=== PATIENT | male | born 1935 | race Caucasian/White ===

== ENCOUNTER 2018-03-17 10:22 | Emergency (ER) | payer MEDICARE, OTHER ==
[2018-03-17 10:31] VITALS: BP 133/75
--- NOTE | 2018-03-17 10:44 | EDM.PDOC ---
ED HPI GENERAL MEDICAL PROBLEM - General Chief Complaint: Cardiovascular Problem Stated Complaint: A-FIB Time Seen by Provider: 03/17/18 10:35 Source of Information: Reports: Patient History Limitations: Reports: No Limitations - History of Present Illness INITIAL COMMENTS - FREE TEXT/NARRATIVE: This 82 yo male patient reports to the ED due to a fast heartrate. The patient reports he noticed his elevated heartrate started last evening. The patient reports that he took an extra cardizem and an extra flecanide today with no change in his heartrate. The patient denies any shortness of breath or chest pain at this time. The patient reports he has had 10 previous similar episodes in the past. The patient reports that his factory representative had advised him to take up to 5 doses of flecanide, but the patient did not feel comfortable taking that many doses without being in a hospital. Onset Date: 03/16/18 Duration: Constant Location: Reports: Other Quality: Reports: Other Severity: Mild Improves with: Reports: None Worsens with: Reports: None Associated Symptoms: Reports: No Other Symptoms - Related Data Allergies Allergy/AdvReac Type Severity Reaction Status Date / Time No Known Allergies Allergy Verified 03/17/18 10:31 Home Meds: Home Meds Diltiazem HCl [Cardizem LA] 1 tab PO DAILY 03/17/18 [History] Docusate Sodium [Colace] 1 tab PO DAILY 03/17/18 [History] Flecainide Acetate 1 tab PO BID 03/17/18 [History] Melatonin 1 tab PO BEDTIME 03/17/18 [History] Omeprazole 1 tab PO DAILY 03/17/18 [History] Rosuvastatin Calcium 1 tab PO DAILY 03/17/18 [History] Warfarin Sodium [Coumadin] 1 tab PO DAILY 03/17/18 [History] Past Medical History Other HEENT History: has had previous bleeds into eye before - Past Surgical History Other Male Surgeries/Procedures: prostrate CA with removal ED ROS GENERAL - Review of Systems Review Of Systems: ROS reveals no pertinent complaints other than HPI. ED EXAM, GENERAL - Physical Exam Exam: See Below Exam Limited By: No Limitations General Appearance: Alert, WD/WN, No Apparent Distress Eye Exam: Bilateral Eye: EOMI, Normal Inspection, PERRL Ears: Normal External Exam, Normal Canal, Hearing Grossly Normal, Normal TMs Nose: Normal Inspection, Normal Mucosa, No Blood Throat/Mouth: Normal Inspection, Normal Lips, Normal Teeth, Normal Gums, Normal Oropharynx, Normal Voice, No Airway Compromise Head: Atraumatic, Normocephalic Neck: Normal Inspection, Supple, Non-Tender, Full Range of Motion Respiratory/Chest: No Respiratory Distress, Lungs Clear, Normal Breath Sounds, No Accessory Muscle Use, Chest Non-Tender Cardiovascular: Tachycardia, Other (mild edema left lower extremity) (Male) Exam: Deferred Rectal (Males) Exam: Deferred Extremities: Normal Range of Motion, Non-Tender, No Pedal Edema, Normal Capillary Refill, Pedal Edema (LLE) Neurological: Alert, Oriented, CN II-XII Intact, Normal Cognition, Normal Gait, Normal Reflexes, No Motor/Sensory Deficits Psychiatric: Normal Affect, Normal Mood Skin Exam: Warm, Dry, Intact, Normal Color, No Rash Lymphatic: No Adenopathy Course - Vital Signs Last Recorded V/S: Last Vital Signs Temp 36.8 C 03/17/18 10:22 Pulse 133 H 03/17/18 10:22 Resp 18 03/17/18 10:22 BP 133/75 03/17/18 10:22 Pulse Ox 96 03/17/18 10:22 - Orders/Labs/Meds Orders: Active Orders 24 hr Category Date Time Status EKG Documentation Completion [RC] URGENT Care 03/17/18 10:29 Active EKG Documentation Completion [RC] URGENT Care 03/17/18 10:49 Ordered Chest 1V Frontal [CR] Urgent Exams 03/17/18 10:29 Ordered Labs: Laboratory Tests 03/17/18 03/17/18 03/17/18 Range/Units 10:39 10:39 10:39 WBC 7.3 (5.0-10.0) 10^3/uL RBC 4.62 (4.6-6.2) 10^6/uL Hgb 14.9 (14.0-18.0) g/dL Hct 44.7 (40.0-54.0) % MCV 96.8 (80-100) fL MCH 32.3 (27.0-34.0) pg MCHC 33.3 (33.0-35.0) g/dL Plt Count 182 (150-450) 10^3/uL Neut % (Auto) 77.2 H (42.2-75.2) % Lymph % (Auto) 10.5 L (20.5-50.1) % [place] % (Auto) 10.8 H (2-8) % Eos % (Auto) 1.2 (1.0-3.0) % Baso % (Auto) 0.3 (0.0-1.0) % PT 30.7 H D (9.0-12.0) SEC INR 3.2 H (0.9-1.2) Sodium 137 (135-145) mmol/L Potassium 3.9 (3.6-5.0) mmol/L Chloride 104 (101-111) mmol/L Carbon Dioxide 24.0 (21.0-31.0) mmol/L Anion Gap 12.9 BUN 16 (7-18) mg/dL Creatinine 1.0 (0.6-1.3) mg/dL Est Cr Clr Drug Dosing 56.05 mL/min Estimated GFR (MDRD) > 60 BUN/Creatinine Ratio 16.00 Glucose 101 (74-105) mg/dL Calcium 8.5 (8.4-10.2) mg/dl Total Bilirubin 0.7 (0.2-1.0) mg/dL AST 24 (10-42) IU/L ALT 18 (10-60) IU/L Alkaline Phosphatase 103 (42-121) IU/L Troponin I < 0.02 (0.00-0.02) ng/ml Total Protein 6.9 (6.7-8.2) g/dl Albumin 3.9 (3.2-5.5) g/dl Globulin 3.0 Albumin/Globulin Ratio 1.30 Departure - Departure Time of Disposition: 11:16 Disposition: Home, Self-Care 01 Condition: Good Clinical Impression: Tachycardia Instructions: Sinus Tachycardia Forms: ED Department Discharge Care Plan Goals: The patient was advised of the examination, lab, x-ray and EKG results during the visit. The patient's tachycardia spontaneously converted without medication intervention. If the patient has any additional symptoms or concerns, the patient should follow-up with his primary care facility or return to the emergency department. - My Orders Last 24 Hours: My Active Orders 03/17/18 10:29 EKG Documentation Completion [RC] URGENT Chest 1V Frontal [CR] Urgent 03/17/18 10:49 EKG Documentation Completion [RC] URGENT - Assessment/Plan Last 24 Hours: My Active Orders 03/17/18 10:29 EKG Documentation Completion [RC] URGENT Chest 1V Frontal [CR] Urgent 03/17/18 10:49 EKG Documentation Completion [RC] URGENT
[2018-03-17 11:06] LABS: ANION GAP 12.9; CHLORIDE,CL 104 mmol/L (101-111); SODIUM,NA 137 mmol/L (135-145)
--- NOTE | 2018-03-21 11:41 | EKG ---
03/17/2018 - SAMUEL ROJAS - TIME: 10:53 a.m. FINDINGS: Sinus rhythm as per my readings. [facility] /[id number]
--- NOTE | 2018-03-21 11:41 | EKG ---
03/17/2018 - SAMUEL ROJAS - TIME: 10:28 a.m. FINDINGS: Sinus tachycardia at 129. [facility] /[id number]
== END 2018-03-17 12:10 | disposition home or self-care (01) ==
LOC: DL.ED 10:22
DX: R00.0 Tachycardia, unspecified (principal)
CPT/HCPCS: 36415; 71045; 80053; 84484; 85025; 85610; 93005; 93010; 99283; 99285

== ENCOUNTER 2018-05-21 23:59 | Emergency (ER) | payer MEDICARE, OTHER ==
--- NOTE | 2018-05-22 00:14 | EDM.PDOC ---
ED HPI GENERAL MEDICAL PROBLEM - General Chief Complaint: Chest Pain Stated Complaint: CHEST PAIN [id number] Time Seen by Provider: 05/22/18 00:11 Source of Information: Reports: Patient History Limitations: Reports: No Limitations - History of Present Illness INITIAL COMMENTS - FREE TEXT/NARRATIVE: sudden onset left chest pain sharp going down arm 10pm tonight. had similar before due to gas but was told at the time to have it check since both are very similar. right now seems to be slightly better. denies h/o [place], no stents no CABG Left Chest Pain Score (Numeric/FACES): 3 - Related Data Allergies Allergy/AdvReac Type Severity Reaction Status Date / Time No Known Allergies Allergy Verified 05/22/18 00:15 Home Meds: Home Meds Diltiazem HCl [Cardizem LA] 1 tab PO DAILY 03/17/18 [History] Docusate Sodium [Colace] 1 tab PO DAILY 03/17/18 [History] Flecainide Acetate 1 tab PO BID 03/17/18 [History] Melatonin 1 tab PO BEDTIME 03/17/18 [History] Omeprazole 1 tab PO DAILY 03/17/18 [History] Rosuvastatin Calcium 1 tab PO DAILY 03/17/18 [History] Warfarin Sodium [Coumadin] 1 tab PO DAILY 03/17/18 [History] Fluticasone Propionate [Flonase] 2 puff NASBOTH DAILY 05/22/18 [History] Past Medical History HEENT History: Reports: Other (See Below) Other HEENT History: has had previous bleeds into eye before Cardiovascular History: Reports: Afib, CAD Oncologic (Cancer) History: Reports: Prostate - Past Surgical History Other Male Surgeries/Procedures: prostrate CA with removal Social & Family History - Caffeine Use Caffeine Use: Reports: Coffee, Soda ED ROS GENERAL - Review of Systems Review Of Systems: ROS reveals no pertinent complaints other than HPI. ED EXAM, GENERAL - Physical Exam Exam: See Below Exam Limited By: No Limitations General Appearance: Alert, WD/WN, Mild Distress, Other (disocmfort) Ears: Hearing Grossly Normal Throat/Mouth: Normal Voice, No Airway Compromise Head: Atraumatic Neck: Non-Tender, Full Range of Motion Respiratory/Chest: No Respiratory Distress, Chest Non-Tender Cardiovascular: Regular Rate, Rhythm GI/Abdominal: Soft, Non-Tender Neurological: Alert, Oriented, Normal Cognition, Normal Gait, No Motor/Sensory Deficits Psychiatric: Normal Affect, Normal Mood Skin Exam: Warm, Dry, Normal Color Lymphatic: No Adenopathy Course - Vital Signs Last Recorded V/S: Last Vital Signs Temp 36.8 C 05/22/18 01:33 Pulse 55 L 05/22/18 04:07 Resp 16 05/22/18 04:07 BP 133/71 05/22/18 04:07 Pulse Ox 91 L 05/22/18 04:07 - Orders/Labs/Meds Orders: Active Orders 24 hr Category Date Time Status EKG 12 Lead [EKG Documentation Completion] [RC] STAT Care 05/22/18 00:05 Active EKG 12 Lead [EKG Documentation Completion] [RC] STAT Care 05/22/18 05:00 Active Chest 1V Frontal [CR] Urgent Exams 05/22/18 00:17 Taken Labs: Laboratory Tests 05/22/18 05/22/18 05/22/18 Range/Units 00:13 00:13 00:13 WBC 7.0 (5.0-10.0) 10^3/uL RBC 4.33 L (4.6-6.2) 10^6/uL Hgb 13.9 L (14.0-18.0) g/dL Hct 41.9 (40.0-54.0) % MCV 96.8 (80-100) fL MCH 32.1 (27.0-34.0) pg MCHC 33.2 (33.0-35.0) g/dL Plt Count 174 (150-450) 10^3/uL Neut % (Auto) 63.8 (42.2-75.2) % Lymph % (Auto) 20.0 L (20.5-50.1) % [place] % (Auto) 11.9 H (2-8) % Eos % (Auto) 4.0 H (1.0-3.0) % Baso % (Auto) 0.3 (0.0-1.0) % PT 18.8 H D (9.0-12.0) SEC INR 1.9 H (0.9-1.2) Sodium 138 (135-145) mmol/L Potassium 3.7 (3.6-5.0) mmol/L Chloride 103 (101-111) mmol/L Carbon Dioxide 28.0 (21.0-31.0) mmol/L Anion Gap 10.7 BUN 19 H (7-18) mg/dL Creatinine 1.0 (0.6-1.3) mg/dL Est Cr Clr Drug Dosing 56.05 mL/min Estimated GFR (MDRD) > 60 BUN/Creatinine Ratio 19.00 Glucose 101 (74-105) mg/dL Calcium 8.4 (8.4-10.2) mg/dl Total Bilirubin 0.5 (0.2-1.0) mg/dL AST 20 (10-42) IU/L ALT 19 (10-60) IU/L Alkaline Phosphatase 114 (42-121) IU/L Troponin I < 0.02 (0.00-0.02) ng/ml Total Protein 6.8 (6.7-8.2) g/dl Albumin 3.8 (3.2-5.5) g/dl Globulin 3.0 Albumin/Globulin Ratio 1.27 //18 Range/Units 05:00 WBC (5.0-10.0) 10^3/uL RBC (4.6-6.2) 10^6/uL Hgb (14.0-18.0) g/dL Hct (40.0-54.0) % MCV (80-100) fL MCH (27.0-34.0) pg MCHC (33.0-35.0) g/dL Plt Count (150-450) 10^3/uL Neut % (Auto) (42.2-75.2) % Lymph % (Auto) (20.5-50.1) % [place] % (Auto) (2-8) % Eos % (Auto) (1.0-3.0) % Baso % (Auto) (0.0-1.0) % PT (9.0-12.0) SEC INR (0.9-1.2) Sodium (135-145) mmol/L Potassium (3.6-5.0) mmol/L Chloride (101-111) mmol/L Carbon Dioxide (21.0-31.0) mmol/L Anion Gap BUN (7-18) mg/dL Creatinine (0.6-1.3) mg/dL Est Cr Clr Drug Dosing mL/min Estimated GFR (MDRD) BUN/Creatinine Ratio Glucose (74-105) mg/dL Calcium (8.4-10.2) mg/dl Total Bilirubin (0.2-1.0) mg/dL AST (10-42) IU/L ALT (10-60) IU/L Alkaline Phosphatase (42-121) IU/L Troponin I < 0.02 (0.00-0.02) ng/ml Total Protein (6.7-8.2) g/dl Albumin (3.2-5.5) g/dl Globulin Albumin/Globulin Ratio Meds: Medications Discontinued Medications Generic Name Dose Route Start Last Admin Trade Name Freq PRN Reason Stop Dose Admin Ketorolac Tromethamine 15 mg 05/22/18 01:03 05/22/18 01:17 Toradol IVPUSH 05/22/18 01:04 15 mg ONETIME ONE Administration Nitroglycerin 0.4 mg 05/22/18 00:48 05/22/18 01:14 Nitrostat SL 05/22/18 00:49 Not Given ONETIME ONE - Re-Assessments/Exams Free Text/Narrative Re-Assessment/Exam: 05/22/18 01:12 results discussed with pt who is actually feeling better but not 100%, thinks his shoulder arthritis is acting up, discussed about extended ER for repeat lab & ekg in am. 05/22/18 05:53 re-exam; no c/o feels much better presently. repeat ekg & trop = 'o' Departure - Departure Time of Disposition: 05:54 Disposition: Home, Self-Care 01 Condition: Good Clinical Impression: Atypical chest pain, Shoulder arthritis Forms: ED Department Discharge Additional Instructions: 1) rest and avoid strenuous activities 2) try heat pad to shoulder 3) recheck if there is any change or concern - My Orders Last 24 Hours: My Active Orders 05/22/18 00:05 EKG 12 Lead [EKG Documentation Completion] [RC] STAT 05/22/18 00:17 Chest 1V Frontal [CR] Urgent 05/22/18 05:00 EKG 12 Lead [EKG Documentation Completion] [RC] STAT - Assessment/Plan Last 24 Hours: My Active Orders 05/22/18 00:05 EKG 12 Lead [EKG Documentation Completion] [RC] STAT 05/22/18 00:17 Chest 1V Frontal [CR] Urgent 05/22/18 05:00 EKG 12 Lead [EKG Documentation Completion] [RC] STAT
[2018-05-22 00:40] LABS: ANION GAP 10.7; CHLORIDE,CL 103 mmol/L (101-111); SODIUM,NA 138 mmol/L (135-145)
[2018-05-22] MEDS ORDERED: Nitroglycerin 0.4 MG Tab.SL SL ONE (00:48)
[2018-05-22] MEDS ORDERED: Ketorolac 30 MG/ML SDV IVPUSH ONE (01:03)
[2018-05-22 04:08] VITALS: BP 133/71
== END 2018-05-22 06:14 | disposition home or self-care (01) ==
LOC: DL.ED 23:59
DX: R07.89 Other chest pain (principal); M19.019 Primary osteoarthritis, unspecified shoulder; Z79.899 Other long term (current) drug therapy
CPT/HCPCS: 36415; 71045; 80053; 84484; 85025; 85610; 93005; 93010; 96374; 99285; J1885; 99284

== ENCOUNTER 2019-01-07 19:08 | Emergency (ER) | payer MEDICARE, OTHER ==
[2019-01-07 19:54] VITALS: BP 148/64
[2019-01-07] MEDS ORDERED: Pantoprazole 80 MG in Sodium Chloride 0.9% 100 ML IV ONE (20:15)
[2019-01-07] MEDS ORDERED: Pantoprazole 40 MG Vial IVPUSH ONE (20:22)
--- NOTE | 2019-01-07 20:22 | EDM.PDOC ---
ED HPI GENERAL MEDICAL PROBLEM - General Chief Complaint: Gastrointestinal Problem Stated Complaint: BLOOD IN STOOL Time Seen by Provider: 01/07/19 19:55 Source of Information: Reports: Patient History Limitations: Reports: No Limitations - History of Present Illness INITIAL COMMENTS - FREE TEXT/NARRATIVE: ED with c/o one time bloody stool prior to arrival, No hx GI bleed, Remote diverticulitis. Has had no pain or nausea. No vomiting . On coumadin for A fib. Last INR one month ago. Levels usually stable when on branded coumadin. No bruising. No fever or chills. - Related Data Allergies Allergy/AdvReac Type Severity Reaction Status Date / Time No Known Allergies Allergy Verified 01/07/19 19:47 Home Meds: Home Meds Diltiazem HCl [Cardizem LA] 1 tab PO DAILY 03/17/18 [History] Docusate Sodium [Colace] 1 tab PO DAILY 03/17/18 [History] Flecainide Acetate 1 tab PO BID 03/17/18 [History] Omeprazole 1 tab PO DAILY PRN 03/17/18 [History] Rosuvastatin Calcium 1 tab PO DAILY 03/17/18 [History] Warfarin Sodium [Coumadin] 1 tab PO DAILY 03/17/18 [History] Past Medical History HEENT History: Reports: Other (See Below) Other HEENT History: has had previous bleeds into eye before Cardiovascular History: Reports: Afib, CAD Musculoskeletal History: Reports: Arthritis Oncologic (Cancer) History: Reports: Prostate - Past Surgical History GI Surgical History: Reports: Cholecystectomy Other Male Surgeries/Procedures: prostate CA with removal Social & Family History - Family History Family Medical History: Noncontributory - Tobacco Use Smoking Status *Q: Unknown Ever Smoked - Caffeine Use Caffeine Use: Reports: Coffee - Alcohol Use Days Per Week of Alcohol Use: 3 Number of Drinks Per Day: 2 Total Drinks Per Week: 6 - Recreational Drug Use Recreational Drug Use: No ED ROS GENERAL - Review of Systems Review Of Systems: ROS reveals no pertinent complaints other than HPI. ED EXAM, GI/ABD - Physical Exam Exam: See Below Exam Limited By: No Limitations General Appearance: Alert, No Apparent Distress Eyes: Bilateral: EOMI Ears: Normal External Exam, Hearing Loss (mild) Nose: Normal Inspection Throat/Mouth: Normal Inspection Head: Atraumatic, Normocephalic Neck: Normal Inspection Respiratory/Chest: No Respiratory Distress, Lungs Clear, Normal Breath Sounds Cardiovascular: Normal Peripheral Pulses, Regular Rate, Rhythm GI/Abdominal Exam: Normal Bowel Sounds, Soft, Non-Tender. No: Distended, Guarding, Rigid Rectal (Males) Exam: Heme + Stool Back Exam: Full Range of Motion Extremities: Normal Inspection, Pedal Edema (trace) Neurological: Alert Psychiatric: Normal Affect, Normal Mood Skin Exam: Warm, Dry, Intact, Normal Color Course - Vital Signs Last Recorded V/S: Last Vital Signs Temp 98.9 F 01/07/19 19:53 Pulse 64 01/07/19 19:53 Resp 18 01/07/19 19:53 BP 148/64 H 01/07/19 19:53 Pulse Ox 96 01/07/19 19:53 - Orders/Labs/Meds Labs: Laboratory Tests 01/07/19 01/07/19 01/07/19 Range/Units 20:00 20:00 20:00 WBC 6.0 (5.0-10.0) 10^3/uL RBC 4.51 L (4.6-6.2) 10^6/uL Hgb 14.6 (14.0-18.0) g/dL Hct 43.7 (40.0-54.0) % MCV 96.9 (80-100) fL MCH 32.4 (27.0-34.0) pg MCHC 33.4 (33.0-35.0) g/dL Plt Count 197 (150-450) 10^3/uL Neut % (Auto) 65.4 (42.2-75.2) % Lymph % (Auto) 19.4 L (20.5-50.1) % [place] % (Auto) 10.8 H (2-8) % Eos % (Auto) 4.2 H (1.0-3.0) % Baso % (Auto) 0.2 (0.0-1.0) % PT 20.8 H (9.0-12.0) SEC INR 2.1 H (0.9-1.2) Sodium 138 (135-145) mmol/L Potassium 3.5 L (3.6-5.0) mmol/L Chloride 104 (101-111) mmol/L Carbon Dioxide 21.0 (21.0-31.0) mmol/L Anion Gap 16.5 BUN 20 H (7-18) mg/dL Creatinine 0.9 (0.6-1.3) mg/dL Est Cr Clr Drug Dosing 61.22 mL/min Estimated GFR (MDRD) > 60 BUN/Creatinine Ratio 22.22 Glucose 112 H (74-105) mg/dL Calcium 8.6 (8.4-10.2) mg/dl Total Bilirubin 0.5 (0.2-1.0) mg/dL AST 23 (10-42) IU/L ALT 19 (10-60) IU/L Alkaline Phosphatase 96 (42-121) IU/L Total Protein 6.9 (6.7-8.2) g/dl Albumin 3.8 (3.2-5.5) g/dl Globulin 3.1 Albumin/Globulin Ratio 1.23 Urine Color (YELLOW) Urine Appearance (CLEAR) Urine pH (5.0-9.0) Ur Specific [place] (1.005-1.030) Urine Protein (NEGATIVE) Urine Glucose (UA) (NEGATIVE) Urine Ketones (NEGATIVE) Urine Occult Blood (NEGATIVE) Urine Nitrite (NEGATIVE) Urine Bilirubin (NEGATIVE) Urine Urobilinogen (0.2-1.0) mg/dL Ur Leukocyte Esterase (NEGATIVE) Blood Type Gel Antibody Screen 01/07/19 01/07/19 01/07/19 Range/Units 20:00 20:10 21:35 WBC (5.0-10.0) 10^3/uL RBC (4.6-6.2) 10^6/uL Hgb 14.0 (14.0-18.0) g/dL Hct (40.0-54.0) % MCV (80-100) fL MCH (27.0-34.0) pg MCHC (33.0-35.0) g/dL Plt Count (150-450) 10^3/uL Neut % (Auto) (42.2-75.2) % Lymph % (Auto) (20.5-50.1) % [place] % (Auto) (2-8) % Eos % (Auto) (1.0-3.0) % Baso % (Auto) (0.0-1.0) % PT (9.0-12.0) SEC INR (0.9-1.2) Sodium (135-145) mmol/L Potassium (3.6-5.0) mmol/L Chloride (101-111) mmol/L Carbon Dioxide (21.0-31.0) mmol/L Anion Gap BUN (7-18) mg/dL Creatinine (0.6-1.3) mg/dL Est Cr Clr Drug Dosing mL/min Estimated GFR (MDRD) BUN/Creatinine Ratio Glucose (74-105) mg/dL Calcium (8.4-10.2) mg/dl Total Bilirubin (0.2-1.0) mg/dL AST (10-42) IU/L ALT (10-60) IU/L Alkaline Phosphatase (42-121) IU/L Total Protein (6.7-8.2) g/dl Albumin (3.2-5.5) g/dl Globulin Albumin/Globulin Ratio Urine Color Yellow (YELLOW) Urine Appearance Clear (CLEAR) Urine pH 5.0 (5.0-9.0) Ur Specific [place] 1.020 (1.005-1.030) Urine Protein Negative (NEGATIVE) Urine Glucose (UA) Negative (NEGATIVE) Urine Ketones Negative (NEGATIVE) Urine Occult Blood Negative (NEGATIVE) Urine Nitrite Negative (NEGATIVE) Urine Bilirubin Negative (NEGATIVE) Urine Urobilinogen 0.2 (0.2-1.0) mg/dL Ur Leukocyte Esterase Negative (NEGATIVE) Blood Type O POSITIVE Gel Antibody Screen Negative Meds: Medications Discontinued Medications Generic Name Dose Route Start Last Admin Trade Name Freq PRN Reason Stop Dose Admin Pantoprazole Sodium 80 mg/ 100 mls @ 200 mls/hr 01/07/19 20:15 01/07/19 20:25 Sodium Chloride IV 01/07/19 20:44 Not Given .BOLUS ONE Pantoprazole Sodium 40 mg/ 100 mls @ 20 mls/hr 01/07/19 20:30 01/07/19 20:26 Sodium Chloride IV 20 mls/hr .CONTINUOS FELISA Administration Sodium Chloride 1,000 mls @ 150 mls/min 01/07/19 20:40 01/07/19 20:54 Normal Saline IV 01/07/19 20:46 150 mls/min .BOLUS ONE Administration Pantoprazole Sodium 80 mg 01/07/19 20:22 01/07/19 20:24 Protonix Iv IVPUSH 01/07/19 20:23 80 mg .BOLUS ONE Administration Pantoprazole Sodium Confirm 01/07/19 20:24 01/07/19 20:29 Protonix Iv Administered 01/07/19 20:25 Not Given Dose 40 mg .ROUTE .STK-MED ONE Phytonadione 5 mg 01/07/19 21:02 01/07/19 21:20 Aquamephyton PO 01/07/19 21:03 5 mg ONETIME ONE Administration - Re-Assessments/Exams Free Text/Narrative Re-Assessment/Exam: 2 large loose currant jelly stools in ED. Tx [place] via [facility]. No GI specialty at [facility]. VSS. Continues without pain. Departure - Departure Time of Disposition: 21:55 Disposition: DC/Tfer to Acute Hospital 02 Condition: Good Clinical Impression: Chronic anticoagulation GI bleed Qualifiers: GI bleed type/associated pathology: unspecified gastrointestinal hemorrhage type Qualified Code(s): K92.2 - Gastrointestinal hemorrhage, unspecified A-fib Qualifiers: Atrial fibrillation type: paroxysmal Qualified Code(s): I48.0 - Paroxysmal atrial fibrillation - Discharge Information *PRESCRIPTION DRUG MONITORING PROGRAM REVIEWED*: No *COPY OF PRESCRIPTION DRUG MONITORING REPORT IN PATIENT MELODY: No Referrals: PCP,Unobtain [Primary Care Provider] - Forms: ED Department Discharge
[2019-01-07] MEDS ORDERED: Pantoprazole 40 MG Vial ONE (20:24)
[2019-01-07 20:28] LABS: ANION GAP 16.5; CHLORIDE,CL 104 mmol/L (101-111); SODIUM,NA 138 mmol/L (135-145)
[2019-01-07] MEDS ORDERED: Pantoprazole 40 MG in Sodium Chloride 0.9% 100 ML IV SCH (20:30)
[2019-01-07] MEDS ORDERED: Sodium Chloride 0.9% 1,000 ML IV ONE (20:40)
[2019-01-07] MEDS ORDERED: Phytonadione ORAL 2.5mg/2.5ml Soln Simple Syrup U/D PO ONE (21:02)
== END 2019-01-07 21:53 ==
LOC: DL.ED 19:08
DX: K92.2 Gastrointestinal hemorrhage, unspecified (principal); I48.0 Paroxysmal atrial fibrillation; I25.10 Atherosclerotic heart disease of native coronary artery without angina pectoris; Z79.899 Other long term (current) drug therapy; Z79.01 Long term (current) use of anticoagulants
CPT/HCPCS: 36415; 80053; 81003; 82272; 85018; 85025; 85610; 86850; 86900; 86901; 93005; 96365; 96376; 99284; A9270; C9113; J7030; J7050

== ENCOUNTER 2021-12-30 15:25 | Emergency (ER) | payer MEDICARE, OTHER ==
[2021-12-30] MEDS ORDERED: Acetaminophen/HYDROcodone 325-5 MG Tab PO ONE (15:26)
[2021-12-30] MEDS ORDERED: Ondansetron 4 MG Tab.DIS PO ONE (15:26)
[2021-12-30] MEDS ORDERED: Ondansetron 4 MG/2 ML SDV IVPUSH ONE (15:44)
[2021-12-30 16:16] VITALS: BP 170/65; PULSE 83
[2021-12-30 16:40] LABS: ANION GAP 15.1 mEq/L (7-13); CHLORIDE,CL 100 mmol/L (98-107); SODIUM,NA 135 mmol/L (136-145)
[2021-12-30] MEDS ORDERED: Sodium Chloride 0.9% 1,000 ML IV ONE (16:52)
[2021-12-30] MEDS ORDERED: HYDROmorphone 1 MG/ML Syringe IVPUSH ONE ×2 (16:52→17:54)
[2021-12-30] MEDS ORDERED: Iopamidol 612 MG/ML 100 ML Bottle IVPUSH ONE (16:53)
[2021-12-30 17:25] LABS: PTT,PARTIAL THROMBOPLSTIN TIME 55.5 SEC (22.0-34.0)
[2021-12-30 18:17] LABS: AMPHETAMINES,URINE NEGATIVE (NEGATIVE); BARBITURATES,URINE NEGATIVE (NEGATIVE); BENZODIAZEPINE,URINE NEGATIVE (NEGATIVE); MDMA (ECSTASY), URINE NEGATIVE (NEGATIVE); METHADONE,URINE POSITIVE (NEGATIVE); METHAMPHETAMINES,URINE NEGATIVE (NEGATIVE); OPIATES,URINE NEGATIVE (NEGATIVE); OXYCODONE,URINE NEGATIVE (NEGATIVE); PHENCYCLIDINE,URINE NEGATIVE (NEGATIVE); TCA,URINE NEGATIVE (NEGATIVE)
[2021-12-30] MEDS ORDERED: Acetaminophen/HYDROcodone 325-5 MG Tab ONE (19:46)
[2021-12-30] MEDS ORDERED: Ondansetron 4 MG Tab.DIS ONE (19:46)
== END 2021-12-30 20:01 | disposition home or self-care (01) ==
LOC: DL.ED 15:25
DX: N13.2 Hydronephrosis with renal and ureteral calculous obstruction (principal); I48.91 Unspecified atrial fibrillation; I25.10 Atherosclerotic heart disease of native coronary artery without angina pectoris; N04.9 Nephrotic syndrome with unspecified morphologic changes; R79.1 Abnormal coagulation profile; Z79.01 Long term (current) use of anticoagulants; Z79.899 Other long term (current) drug therapy; Z88.1 Allergy status to other antibiotic agents; Z88.0 Allergy status to penicillin; Z88.8 Allergy status to other drugs, medicaments and biological substances
CPT/HCPCS: 36415; 74177; 80053; 80305-QW; 80307; 81001; 82150; 83605; 83690; 83735; 85025; 85610; 85730; 86140; 96374; 96375; 96376; 99284; 99284-25; A9270-GY; J1170; J2405; J7030

== ENCOUNTER 2024-08-22 12:07 | Inpatient (IN) | payer MEDICARE, OTHER ==
[2024-08-22] MEDS ORDERED: Ondansetron 4 MG Tab.DIS PO PRN ×2 (16:35→17:54)
[2024-08-22] MEDS ORDERED: oxyCODONE 5 MG Tab PO PRN (17:54)
[2024-08-22] MEDS ORDERED: traMADol 50 MG Tab PO PRN (17:54)
[2024-08-22] MEDS: Diltiazem 120 MG Cap.CD PO SCH (20:52)
[2024-08-22] MEDS: Diltiazem 180 MG Cap.CD PO SCH (20:52)
[2024-08-22] MEDS: Sennosides/Docusate Sodium 50-8.6 MG Tab PO SCH (20:52)
[2024-08-22] MEDS: Docusate Sodium 100 MG Cap PO SCH (20:52)
[2024-08-22] MEDS: Apixaban 5 MG Tab PO SCH (20:52)
[2024-08-22] MEDS: Rosuvastatin 10 MG Tab PO SCH (20:53)
[2024-08-22] MEDS: Acetaminophen 325 MG Tab PO PRN (20:58)
[2024-08-23] MEDS: Acetaminophen 325 MG Tab PO SCH (01:50)
[2024-08-23] MEDS: Pantoprazole 40 MG Tab.CR PO SCH (05:56)
[2024-08-23] MEDS: Celecoxib 100 MG Cap PO SCH (08:34)
[2024-08-23] MEDS: Gabapentin 100 MG Cap PO SCH (08:34)
[2024-08-23] MEDS: Multivitamin Tab PO SCH (08:34)
[2024-08-23] MEDS: Saccharomyces Boulardii (Probiotic) 250 MG Cap PO SCH (10:59)
[2024-08-23] MEDS: [UNRECOGNIZED DRUG - OTHER] PO SCH (11:03)
[2024-08-23] MEDS: Lidocaine 5% 700 MG Patch TOP SCH (16:28)
[2024-08-23] MEDS: FLECAINIDE ACETATE 50 MG PO SCH (17:30)
[2024-08-23] MEDS: OMEGA PO SCH (17:31)
[2024-08-23] MEDS: EPA PO SCH (17:31)
[2024-08-23] MEDS: FISH OIL PO SCH (17:31)
[2024-08-23] MEDS: DHA PO SCH (17:31)
[2024-08-23] MEDS: [UNRECOGNIZED DRUG - OTHER] PO SCH (17:31)
[2024-08-23] MEDS: FLECAINIDE 50 MG PO SCH (21:49)
[2024-08-23] MEDS: Non-Formulary Medication 1 Each (Rosuvastatin [Crestor] 20 MG Tablet) PO SCH (22:38)
[2024-08-24] MEDS: Sennosides/Docusate Sodium 50-8.6 MG Tab PO PRN (09:49)
[2024-08-24 10:13] LABS: HEMATOCRIT 29.9 % (40.0-54.0); HEMOGLOBIN 8.9 g/dL (14.0-18.0); MEAN CORPUSCULAR HEMOGLOBIN 28.4 pg (27.0-34.0); MEAN CORPUSCULAR HGB CONC 29.8 g/dL (33.0-35.0); MEAN CORPUSCULAR VOLUME 95.5 fL (80-100); RED BLOOD CELL COUNT 3.13 10^6/uL (4.6-6.2); WHITE BLOOD CELL COUNT,WBC 6.3 10^3/uL (5.0-10.0)
[2024-08-24 10:33] LABS: ANION GAP 10.8 mEq/L (7-13); CALCIUM 8.3 mg/dL (8.5-10.1); CREATININE 0.79 mg/dL (0.70-1.30); EST CRCL DRUG DOSING (CG) 63.73 mL/min; POTASSIUM,K 3.8 mmol/L (3.5-5.1)
[2024-08-25] MEDS: Furosemide 20 MG Tab PO ONE (11:35)
[2024-08-25] MEDS ORDERED: Erythromycin Base 0.5% Ophth Oint 1 GM Tube EYEBOTH PRN (20:24)
[2024-08-25] MEDS ORDERED: ERYTHROMYCIN BASE 0.5% EYEBOTH PRN (21:12)
[2024-08-25] MEDS: ERYTHROMYCIN BASE 0.5% EYEBOTH PRN (21:42)
[2024-08-26 08:26] LABS: CALCIUM 8.5 mg/dL (8.5-10.1); CREATININE 0.77 mg/dL (0.70-1.30); EST CRCL DRUG DOSING (CG) 65.39 mL/min
[2024-08-27] MEDS: Diclofenac Sodium 1% Gel 100 GM Tube TOP PRN (01:47)
[2024-08-27 11:13] LABS: HEMATOCRIT 28.7 % (40.0-54.0); HEMOGLOBIN 8.7 g/dL (14.0-18.0); MEAN CORPUSCULAR HEMOGLOBIN 28.8 pg (27.0-34.0); MEAN CORPUSCULAR HGB CONC 30.3 g/dL (33.0-35.0); RED BLOOD CELL COUNT 3.02 10^6/uL (4.6-6.2); WHITE BLOOD CELL COUNT,WBC 5.6 10^3/uL (5.0-10.0)
[2024-08-27 11:26] LABS: ANION GAP 12.1 mEq/L (7-13); CALCIUM 8.2 mg/dL (8.5-10.1); CREATININE 0.85 mg/dL (0.70-1.30); EST CRCL DRUG DOSING (CG) 59.24 mL/min; POTASSIUM,K 4.1 mmol/L (3.5-5.1)
[2024-08-30 14:12] LABS: HEMATOCRIT 27.6 % (40.0-54.0); HEMOGLOBIN 8.3 g/dL (14.0-18.0); MEAN CORPUSCULAR HEMOGLOBIN 28.6 pg (27.0-34.0); MEAN CORPUSCULAR HGB CONC 30.1 g/dL (33.0-35.0); MEAN CORPUSCULAR VOLUME 95.2 fL (80-100); RED BLOOD CELL COUNT 2.9 10^6/uL (4.6-6.2)
[2024-08-30 14:23] LABS: ANION GAP 13.9 mEq/L (7-13); CALCIUM 8.2 mg/dL (8.5-10.1); CREATININE 0.81 mg/dL (0.70-1.30); EST CRCL DRUG DOSING (CG) 62.16 mL/min; POTASSIUM,K 3.9 mmol/L (3.5-5.1)
[2024-08-31 07:24] VITALS: BP 119/96; PULSE 63
== END 2024-08-31 10:55 | disposition home or self-care (01) | DRG 556 ==
LOC: DL.MS 15:54
PROVIDERS: ADMIT Internal Medicine; ATTEND Internal Medicine
DX: M25.562 Pain in left knee (principal); Z66 Do not resuscitate; Z96.651 Presence of right artificial knee joint; I48.0 Paroxysmal atrial fibrillation; I10 Essential (primary) hypertension; I25.10 Atherosclerotic heart disease of native coronary artery without angina pectoris; M06.9 Rheumatoid arthritis, unspecified; K21.9 Gastro-esophageal reflux disease without esophagitis; R73.03 Prediabetes; Z79.01 Long term (current) use of anticoagulants; Z88.0 Allergy status to penicillin; Z88.2 Allergy status to sulfonamides; Z88.8 Allergy status to other drugs, medicaments and biological substances; Z88.1 Allergy status to other antibiotic agents; Z79.899 Other long term (current) drug therapy; Z79.52 Long term (current) use of systemic steroids; Z85.46 Personal history of malignant neoplasm of prostate; Z90.49 Acquired absence of other specified parts of digestive tract
CPT/HCPCS: 36415; 80048; 85027; 94010; 97110-GO; 97110-GP; 97116-GP; 97161-GP; 97165-GO; 97530-GO; 99305; 99308; 99316; A9270-GY

== ENCOUNTER 2025-01-18 08:24 | Inpatient (IN) | payer MEDICARE, OTHER ==
[2025-01-18] MEDS ORDERED: Sennosides/Docusate Sodium 50-8.6 MG Tab PO PRN (19:03)
[2025-01-18] MEDS ORDERED: Sodium Chloride 0.9% 10 ML Syringe FLUSH PRN (19:09)
[2025-01-18] MEDS ORDERED: Erythromycin Base 0.5% Ophth Oint 3.5 GM Tube EYEBOTH PRN (19:11)
[2025-01-18] MEDS: Ibuprofen 400 MG Tab PO SCH (20:53)
[2025-01-18] MEDS: Acetaminophen 325 MG Tab PO SCH ×2 (20:54→23:09)
[2025-01-18] MEDS: Apixaban 5 MG Tab PO ONE (20:55)
[2025-01-18] MEDS: Docusate Sodium 100 MG Cap PO SCH (20:55)
[2025-01-18] MEDS ORDERED: Non-Formulary Medication 1 Each (Rosuvastatin [Crestor] 20 MG Tablet) PO SCH (21:00)
[2025-01-18] MEDS: Sodium Chloride 0.9% 10 ML Syringe FLUSH SCH (21:00)
[2025-01-18] MEDS: Polyethylene Glycol 3350 Powder 17 GM Packet PO SCH (21:00)
[2025-01-18] MEDS: FLECAINIDE 50 MG PO SCH (21:56)
[2025-01-18] MEDS: DILTIAZEM 300 MG PO SCH (21:57)
[2025-01-19] MEDS ORDERED: Ondansetron 4 MG/2 ML SDV IVPUSH PRN (01:56)
[2025-01-19] MEDS: oxyCODONE 5 MG Tab PO PRN (01:57)
[2025-01-19] MEDS: Ondansetron 4 MG Tab.DIS PO PRN (02:12)
[2025-01-19] MEDS: Pantoprazole 40 MG Tab.CR PO SCH (05:47)
[2025-01-19 06:17] LABS: BASOPHILS PERCENT AUTO 0.2 % (0.0-1.0); EOSINOPHILS PERCENT AUTO 3.2 % (1.0-3.0); HEMATOCRIT 23.7 % (40.0-54.0); HEMOGLOBIN 7.5 g/dL (14.0-18.0); MEAN CORPUSCULAR HGB CONC 31.6 g/dL (33.0-35.0); MEAN CORPUSCULAR VOLUME 94.8 fL (80-100); MONOCYTES PERCENT AUTO 10.9 % (2-8); NEUTROPHILS PERCENT AUTO 76.7 % (42.2-75.2); PLATELET COUNT,PLT 254 10^3/uL (150-450); WHITE BLOOD CELL COUNT,WBC 8.3 10^3/uL (5.0-10.0)
[2025-01-19 06:37] LABS: ALBUMIN 1.9 g/dL (3.4-5.0); ANION GAP 9.4 mEq/L (7-13); BILIRUBIN TOTAL 0.5 mg/dL (0.2-1.0); BUN/CREATININE RATIO 20.3 (No establ ref range); CREATININE 0.79 mg/dL (0.70-1.30); EST CRCL DRUG DOSING (CG) 56.22 mL/min; POTASSIUM,K 4.4 mmol/L (3.5-5.1); PROTEIN TOTAL,TP 5.8 g/dL (6.4-8.2)
[2025-01-19 06:40] LABS: A/G RATIO 0.49
[2025-01-19] MEDS: Bisacodyl 5 MG Tab PO SCH (08:14)
[2025-01-19] MEDS ORDERED: APIXABAN 5 MG PO SCH (09:00)
[2025-01-19] MEDS: APIXABAN 5 MG PO SCH (10:58)
[2025-01-19] MEDS: Polyethylene Glycol 3350 Powder 17 GM Packet PO SCH (21:13)
[2025-01-19] MEDS: Sennosides/Docusate Sodium 50-8.6 MG Tab PO SCH (21:14)
[2025-01-20 06:28] LABS: BASOPHILS PERCENT AUTO 0.4 % (0.0-1.0); EOSINOPHILS PERCENT AUTO 2.3 % (1.0-3.0); HEMATOCRIT 25.5 % (40.0-54.0); HEMOGLOBIN 7.9 g/dL (14.0-18.0); LYMPHOCYTES PERCENT AUTO 8.8 % (20.5-50.1); MEAN CORPUSCULAR HEMOGLOBIN 29.3 pg (27.0-34.0); MEAN CORPUSCULAR VOLUME 94.4 fL (80-100); NEUTROPHILS PERCENT AUTO 74.5 % (42.2-75.2); PLATELET COUNT,PLT 280 10^3/uL (150-450); WHITE BLOOD CELL COUNT,WBC 7.8 10^3/uL (5.0-10.0)
[2025-01-20 06:59] LABS: ANION GAP 9.3 mEq/L (7-13); BILIRUBIN TOTAL 0.5 mg/dL (0.2-1.0); BUN/CREATININE RATIO 16.5 (No establ ref range); CALCIUM 8.1 mg/dL (8.5-10.1); CREATININE 0.79 mg/dL (0.70-1.30); EST CRCL DRUG DOSING (CG) 56.22 mL/min; MAGNESIUM 1.9 mg/dL (1.8-2.4); POTASSIUM,K 4.3 mmol/L (3.5-5.1); PROTEIN TOTAL,TP 5.9 g/dL (6.4-8.2)
[2025-01-20 07:03] LABS: A/G RATIO 0.51
[2025-01-20] MEDS: Celecoxib 100 MG Cap PO SCH (10:29)
[2025-01-21] MEDS: Metoclopramide 10 MG Tab PO ONE (03:25)
[2025-01-21] MEDS ORDERED: Polyethylene Glycol 3350 Powder 17 GM Packet PO PRN (06:16)
[2025-01-21] MEDS ORDERED: Sennosides/Docusate Sodium 50-8.6 MG Tab PO PRN (06:16)
[2025-01-21] MEDS ORDERED: Docusate Sodium 100 MG Cap PO PRN (06:16)
[2025-01-21] MEDS ORDERED: Bisacodyl 5 MG Tab PO PRN (06:16)
[2025-01-21 06:27] LABS: BASOPHILS PERCENT AUTO 0.3 % (0.0-1.0); EOSINOPHILS PERCENT AUTO 1.4 % (1.0-3.0); HEMATOCRIT 30.9 % (40.0-54.0); HEMOGLOBIN 10.3 g/dL (14.0-18.0); LYMPHOCYTES PERCENT AUTO 6.8 % (20.5-50.1); MEAN CORPUSCULAR HEMOGLOBIN 31.1 pg (27.0-34.0); MEAN CORPUSCULAR HGB CONC 33.3 g/dL (33.0-35.0); MEAN CORPUSCULAR VOLUME 93.4 fL (80-100); MONOCYTES PERCENT AUTO 13.3 % (2-8); NEUTROPHILS PERCENT AUTO 78.2 % (42.2-75.2); PLATELET COUNT,PLT 356 10^3/uL (150-450); RED BLOOD CELL COUNT 3.31 10^6/uL (4.6-6.2); WHITE BLOOD CELL COUNT,WBC 9.3 10^3/uL (5.0-10.0)
[2025-01-21 07:10] LABS: ALBUMIN 2.2 g/dL (3.4-5.0); ANION GAP 13.2 mEq/L (7-13); BILIRUBIN TOTAL 0.8 mg/dL (0.2-1.0); BUN/CREATININE RATIO 14.5 (No establ ref range); CALCIUM 8.9 mg/dL (8.5-10.1); CREATININE 0.76 mg/dL (0.70-1.30); EST CRCL DRUG DOSING (CG) 58.44 mL/min; MAGNESIUM 1.9 mg/dL (1.8-2.4); POTASSIUM,K 4.2 mmol/L (3.5-5.1); PROTEIN TOTAL,TP 6.7 g/dL (6.4-8.2)
[2025-01-21 07:12] LABS: A/G RATIO 0.49
[2025-01-21] MEDS ORDERED: Sodium Chloride 0.9% 10 ML Syringe FLUSH PRN (14:59)
[2025-01-21] MEDS: Ondansetron 4 MG/2 ML SDV IVPUSH PRN (15:31)
[2025-01-21] MEDS: Metoclopramide 10 MG/2 ML SDV IVPUSH PRN (18:48)
[2025-01-21] MEDS: Sodium Chloride 0.9% 1,000 ML IV SCH (18:48)
[2025-01-21] MEDS: Sodium Chloride 0.9% 10 ML Syringe FLUSH SCH (20:45)
[2025-01-21] MEDS ORDERED: Non-Formulary Medication 1 Each (Methocarbamol [Methocarbamol] 500 MG Tablet) PO PRN (21:00)
[2025-01-22 06:16] LABS: BASOPHILS PERCENT AUTO 0.2 % (0.0-1.0); EOSINOPHILS PERCENT AUTO 2.2 % (1.0-3.0); HEMOGLOBIN 10.5 g/dL (14.0-18.0); LYMPHOCYTES PERCENT AUTO 8.2 % (20.5-50.1); MEAN CORPUSCULAR HGB CONC 36.2 g/dL (33.0-35.0); MEAN CORPUSCULAR VOLUME 93.9 fL (80-100); MONOCYTES PERCENT AUTO 15.7 % (2-8); NEUTROPHILS PERCENT AUTO 73.7 % (42.2-75.2); PLATELET COUNT,PLT 306 10^3/uL (150-450); RED BLOOD CELL COUNT 3.09 10^6/uL (4.6-6.2); WHITE BLOOD CELL COUNT,WBC 8.3 10^3/uL (5.0-10.0)
[2025-01-22 06:35] LABS: ALBUMIN 2.1 g/dL (3.4-5.0); ANION GAP 12.9 mEq/L (7-13); BILIRUBIN TOTAL 0.7 mg/dL (0.2-1.0); BUN/CREATININE RATIO 15.7 (No establ ref range); CALCIUM 8.2 mg/dL (8.5-10.1); CREATININE 0.83 mg/dL (0.70-1.30); EST CRCL DRUG DOSING (CG) 53.51 mL/min; POTASSIUM,K 3.9 mmol/L (3.5-5.1); PROTEIN TOTAL,TP 6.2 g/dL (6.4-8.2)
[2025-01-22 06:42] LABS: A/G RATIO 0.51
[2025-01-22] MEDS: Simethicone 80 MG Tab.Chew PO SCH (09:31)
[2025-01-22] MEDS: Iopamidol 612 MG/ML 100 ML Bottle IVPUSH ONE (20:13)
[2025-01-23] MEDS: Cyclobenzaprine 10 MG Tab PO PRN (01:23)
[2025-01-23] MEDS: Lidocaine 2% Jelly 10 ML Urojet ONE (02:06)
[2025-01-23 06:22] LABS: BASOPHILS PERCENT AUTO 0.4 % (0.0-1.0); EOSINOPHILS PERCENT AUTO 1.9 % (1.0-3.0); HEMATOCRIT 28.9 % (40.0-54.0); HEMOGLOBIN 9.7 g/dL (14.0-18.0); LYMPHOCYTES PERCENT AUTO 6.6 % (20.5-50.1); MEAN CORPUSCULAR HEMOGLOBIN 31.7 pg (27.0-34.0); MEAN CORPUSCULAR HGB CONC 33.6 g/dL (33.0-35.0); MEAN CORPUSCULAR VOLUME 94.4 fL (80-100); MONOCYTES PERCENT AUTO 12.5 % (2-8); NEUTROPHILS PERCENT AUTO 78.6 % (42.2-75.2); PLATELET COUNT,PLT 306 10^3/uL (150-450); RED BLOOD CELL COUNT 3.06 10^6/uL (4.6-6.2); WHITE BLOOD CELL COUNT,WBC 8.3 10^3/uL (5.0-10.0)
[2025-01-23 06:42] LABS: ANION GAP 13.5 mEq/L (7-13); CALCIUM 8.3 mg/dL (8.5-10.1); CREATININE 0.79 mg/dL (0.70-1.30); EST CRCL DRUG DOSING (CG) 56.22 mL/min; MAGNESIUM 1.9 mg/dL (1.8-2.4); POTASSIUM,K 3.5 mmol/L (3.5-5.1)
[2025-01-23 07:55] VITALS: BP 134/99; PULSE 76
== END 2025-01-23 07:20 | DRG 948 ==
LOC: DL.MS 16:46
PROVIDERS: ADMIT Internal Medicine; ATTEND Student in an Organized Health Care Education/Training Program
DX: R53.81 Other malaise (principal); Z66 Do not resuscitate; M19.90 Unspecified osteoarthritis, unspecified site; I48.91 Unspecified atrial fibrillation; D63.8 Anemia in other chronic diseases classified elsewhere; E61.1 Iron deficiency; H91.90 Unspecified hearing loss, unspecified ear; I25.10 Atherosclerotic heart disease of native coronary artery without angina pectoris; E78.00 Pure hypercholesterolemia, unspecified; Z90.49 Acquired absence of other specified parts of digestive tract; Z98.890 Other specified postprocedural states; Z88.8 Allergy status to other drugs, medicaments and biological substances; Z85.46 Personal history of malignant neoplasm of prostate; Z79.899 Other long term (current) drug therapy; Z88.0 Allergy status to penicillin; Z79.01 Long term (current) use of anticoagulants; Z96.659 Presence of unspecified artificial knee joint
CPT/HCPCS: 36415; 51702; 71045; 74018; 74177; 80048; 80053; 82728; 83540; 83550; 83735; 85025; 86850; 86900; 86901; 94010; 97110-GO; 97116-GP; 97161-GP; 97165-GO; 97530-GO; 99305; 99309; 99315; A9270-GY; J2405; J2765; J7030; Q9967

== ENCOUNTER 2025-01-28 09:01 | Inpatient (IN) | payer MEDICARE, OTHER ==
[2025-01-28] MEDS ORDERED: Metoclopramide 10 MG Tab PO PRN ×2 (16:25→19:46)
[2025-01-28] MEDS ORDERED: Melatonin 3 MG Tab PO PRN (16:25)
[2025-01-28] MEDS ORDERED: Simethicone 80 MG Tab.Chew PO PRN ×2 (16:48→17:17)
[2025-01-28 16:55] LABS: BASOPHILS PERCENT AUTO 0.3 % (0.0-1.0); EOSINOPHILS PERCENT AUTO 2.7 % (1.0-3.0); HEMATOCRIT 28.2 % (40.0-54.0); HEMOGLOBIN 8.7 g/dL (14.0-18.0); LYMPHOCYTES PERCENT AUTO 10.2 % (20.5-50.1); MEAN CORPUSCULAR HEMOGLOBIN 29.5 pg (27.0-34.0); MEAN CORPUSCULAR HGB CONC 30.9 g/dL (33.0-35.0); MEAN CORPUSCULAR VOLUME 95.6 fL (80-100); MONOCYTES PERCENT AUTO 7.9 % (2-8); NEUTROPHILS PERCENT AUTO 78.9 % (42.2-75.2); PLATELET COUNT,PLT 273 10^3/uL (150-450); RED BLOOD CELL COUNT 2.95 10^6/uL (4.6-6.2); WHITE BLOOD CELL COUNT,WBC 7.7 10^3/uL (5.0-10.0)
[2025-01-28 17:15] LABS: A/G RATIO 0.68; ALBUMIN 2.3 g/dL (3.4-5.0); ANION GAP 8.7 mEq/L (7-13); BILIRUBIN TOTAL 0.4 mg/dL (0.2-1.0); BUN/CREATININE RATIO 20.3 (No establ ref range); CALCIUM 8.4 mg/dL (8.5-10.1); CREATININE 0.64 mg/dL (0.70-1.30); EST CRCL DRUG DOSING (CG) 61.61 mL/min; MAGNESIUM 1.5 mg/dL (1.8-2.4); POTASSIUM,K 3.7 mmol/L (3.5-5.1); PROTEIN TOTAL,TP 5.7 g/dL (6.4-8.2)
[2025-01-28] MEDS ORDERED: Erythromycin Base 0.5% Ophth Oint 1 GM Tube EYEBOTH PRN (18:05)
[2025-01-28] MEDS: Melatonin 3 MG Tab PO PRN (20:25)
[2025-01-28] MEDS: Magnesium Oxide 400 MG Tab PO ONE (20:25)
[2025-01-28] MEDS: Acetaminophen 325 MG Tab PO PRN (20:25)
[2025-01-28] MEDS: Diltiazem 180 MG Cap.CD PO SCH (20:26)
[2025-01-28] MEDS: Diltiazem 120 MG Cap.CD PO SCH (20:26)
[2025-01-28] MEDS: Apixaban 5 MG Tab PO SCH (20:26)
[2025-01-28] MEDS: Simethicone 80 MG Tab.Chew PO SCH (20:27)
[2025-01-28] MEDS ORDERED: Gabapentin 100 MG Cap PO SCH (21:00)
[2025-01-29 08:16] LABS: HEMATOCRIT 29.5 % (40.0-54.0); HEMOGLOBIN 9.1 g/dL (14.0-18.0)
[2025-01-29] MEDS: Magnesium Oxide 400 MG Tab PO SCH (08:28)
[2025-01-29] MEDS: Celecoxib 100 MG Cap PO SCH (08:29)
[2025-01-29] MEDS: Sennosides/Docusate Sodium 50-8.6 MG Tab PO SCH (08:30)
[2025-01-29] MEDS: Omeprazole 20 MG Cap.CR PO SCH (08:30)
[2025-01-29] MEDS: Polyethylene Glycol 3350 Powder 17 GM Packet PO SCH (08:30)
[2025-01-29 08:31] LABS: ANION GAP 9.1 mEq/L (7-13); CALCIUM 8.8 mg/dL (8.5-10.1); CREATININE 0.62 mg/dL (0.70-1.30); EST CRCL DRUG DOSING (CG) 63.6 mL/min; MAGNESIUM 1.7 mg/dL (1.8-2.4); POTASSIUM,K 4.1 mmol/L (3.5-5.1)
[2025-01-29] MEDS ORDERED: Omeprazole 20 MG Cap.CR PO SCH (09:00)
[2025-01-29] MEDS ORDERED: Digoxin 250 MCG Tab PO SCH (09:00)
[2025-01-29] MEDS: FLECAINIDE PO SCH ×2 (09:22→10:01)
[2025-01-29] MEDS: Lidocaine 5% 700 MG Patch TOP SCH (21:23)
[2025-01-30] MEDS: Rosuvastatin 10 MG Tab PO SCH (09:34)
[2025-01-30] MEDS: Saccharomyces Boulardii (Probiotic) 250 MG Cap PO SCH (09:35)
[2025-01-30] MEDS: Magnesium Oxide 400 MG Tab PO SCH (12:16)
[2025-01-30] MEDS: Cyclobenzaprine 10 MG Tab PO ONE (12:16)
[2025-01-31 08:39] LABS: ANION GAP 12.1 mEq/L (7-13); CALCIUM 8.5 mg/dL (8.5-10.1); CREATININE 0.69 mg/dL (0.70-1.30); EST CRCL DRUG DOSING (CG) 57.15 mL/min; MAGNESIUM 1.7 mg/dL (1.8-2.4); POTASSIUM,K 4.1 mmol/L (3.5-5.1)
[2025-01-31] MEDS: Furosemide 40 MG Tab PO ONE (09:54)
[2025-01-31] MEDS: Potassium Chloride 10 MEQ Tab.ER PO ONE (09:55)
[2025-02-01 08:12] LABS: HEMATOCRIT 29.6 % (40.0-54.0); HEMOGLOBIN 9.3 g/dL (14.0-18.0)
[2025-02-01 08:25] LABS: MAGNESIUM 1.9 mg/dL (1.8-2.4); POTASSIUM,K 4.2 mmol/L (3.5-5.1)
[2025-02-01] MEDS: Bumetanide 1 MG Tab PO ONE (10:32)
[2025-02-01] MEDS: Potassium Chloride 10 MEQ Tab.ER PO ONE (10:32)
[2025-02-01] MEDS: Oxybutynin 5 MG Tab PO SCH (20:19)
[2025-02-01] MEDS: Cyclobenzaprine 10 MG Tab PO PRN (22:07)
[2025-02-02 08:44] LABS: POTASSIUM,K 4.5 mmol/L (3.5-5.1)
[2025-02-02] MEDS: Oxybutynin 5 MG Tab PO SCH (20:36)
[2025-02-03] MEDS ORDERED: FISH OIL 1000 MG PO SCH (09:00)
[2025-02-06 12:33] VITALS: BP 102/44; PULSE 16
== END 2025-02-06 13:00 | disposition home or self-care (01) | DRG 948 ==
LOC: DL.MS 15:21
PROVIDERS: ADMIT Student in an Organized Health Care Education/Training Program; ATTEND Student in an Organized Health Care Education/Training Program
DX: R53.1 Weakness (principal); H91.90 Unspecified hearing loss, unspecified ear; I48.91 Unspecified atrial fibrillation; I25.10 Atherosclerotic heart disease of native coronary artery without angina pectoris; E78.00 Pure hypercholesterolemia, unspecified; M19.90 Unspecified osteoarthritis, unspecified site; D50.9 Iron deficiency anemia, unspecified; D63.8 Anemia in other chronic diseases classified elsewhere; E83.42 Hypomagnesemia; E88.09 Other disorders of plasma-protein metabolism, not elsewhere classified; E78.5 Hyperlipidemia, unspecified; K21.9 Gastro-esophageal reflux disease without esophagitis; Z88.8 Allergy status to other drugs, medicaments and biological substances; Z88.0 Allergy status to penicillin; Z79.899 Other long term (current) drug therapy; Z79.01 Long term (current) use of anticoagulants; Z85.46 Personal history of malignant neoplasm of prostate; Z90.49 Acquired absence of other specified parts of digestive tract; Z86.16 Personal history of COVID-19; Z96.659 Presence of unspecified artificial knee joint
CPT/HCPCS: 36415; 80048; 80053; 83735; 84132; 84295; 85014; 85018; 85025; 97110-GO; 97110-GP; 97161-GP; 97165-GO; 97530-GO; 97535-GO; 99305; 99309; 99316; A9270-GY

== ENCOUNTER 2025-02-08 21:13 | Emergency (ER) | payer MEDICARE, OTHER ==
[2025-02-08 21:32] VITALS: BP 141/55; PULSE 88
[2025-02-08] MEDS ORDERED: Sodium Chloride 0.9% 10 ML Syringe FLUSH PRN (21:59)
[2025-02-08 22:14] LABS: BASOPHILS PERCENT AUTO 0.3 % (0.0-1.0); EOSINOPHILS PERCENT AUTO 2.9 % (1.0-3.0); HEMATOCRIT 28.5 % (40.0-54.0); HEMOGLOBIN 8.9 g/dL (14.0-18.0); LYMPHOCYTES PERCENT AUTO 9.9 % (20.5-50.1); MEAN CORPUSCULAR HEMOGLOBIN 29.8 pg (27.0-34.0); MEAN CORPUSCULAR HGB CONC 31.2 g/dL (33.0-35.0); MEAN CORPUSCULAR VOLUME 95.3 fL (80-100); MONOCYTES PERCENT AUTO 11.9 % (2-8); PLATELET COUNT,PLT 349 10^3/uL (150-450); RED BLOOD CELL COUNT 2.99 10^6/uL (4.6-6.2); WHITE BLOOD CELL COUNT,WBC 7.5 10^3/uL (5.0-10.0)
[2025-02-08 22:34] LABS: ALBUMIN 2.6 g/dL (3.4-5.0); BILIRUBIN TOTAL 0.4 mg/dL (0.2-1.0); BUN/CREATININE RATIO 33.7 (No establ ref range); CALCIUM 8.8 mg/dL (8.5-10.1); CREATININE 0.83 mg/dL (0.70-1.30); EST CRCL DRUG DOSING (CG) 59.52 mL/min; PROTEIN TOTAL,TP 6.9 g/dL (6.4-8.2)
[2025-02-08 22:37] LABS: LACTIC ACID 1.2 mmol/L (0.4-2.0)
[2025-02-08 22:48] LABS: A/G RATIO 0.6
== END 2025-02-08 23:56 | disposition home or self-care (01) ==
LOC: DL.ED 21:13
DX: L03.116 Cellulitis of left lower limb (principal); R60.0 Localized edema; E78.00 Pure hypercholesterolemia, unspecified; Z88.0 Allergy status to penicillin; Z88.5 Allergy status to narcotic agent; Z88.8 Allergy status to other drugs, medicaments and biological substances; Z79.899 Other long term (current) drug therapy; Z86.16 Personal history of COVID-19; Z90.49 Acquired absence of other specified parts of digestive tract
CPT/HCPCS: 36415; 80053; 83605; 85025; 93971; 99284

== ENCOUNTER 2025-02-14 11:12 | Emergency (ER) | payer MEDICARE, OTHER ==
[2025-02-14] MEDS ORDERED: Sodium Chloride 0.9% 10 ML Syringe FLUSH PRN (11:37)
[2025-02-14 11:54] LABS: BASOPHILS PERCENT AUTO 0.5 % (0.0-1.0); EOSINOPHILS PERCENT AUTO 2.7 % (1.0-3.0); HEMATOCRIT 27.1 % (40.0-54.0); HEMOGLOBIN 8.4 g/dL (14.0-18.0); LYMPHOCYTES PERCENT AUTO 8.2 % (20.5-50.1); MEAN CORPUSCULAR HEMOGLOBIN 29.7 pg (27.0-34.0); MEAN CORPUSCULAR VOLUME 95.8 fL (80-100); MONOCYTES PERCENT AUTO 11.8 % (2-8); NEUTROPHILS PERCENT AUTO 76.8 % (42.2-75.2); PLATELET COUNT,PLT 350 10^3/uL (150-450); RED BLOOD CELL COUNT 2.83 10^6/uL (4.6-6.2); WHITE BLOOD CELL COUNT,WBC 7.5 10^3/uL (5.0-10.0)
[2025-02-14 12:26] LABS: ALBUMIN 2.5 g/dL (3.4-5.0); ANION GAP 14.5 mEq/L (7-13); BILIRUBIN TOTAL 0.6 mg/dL (0.2-1.0); BUN/CREATININE RATIO 25.8 (No establ ref range); CALCIUM 8.5 mg/dL (8.5-10.1); CREATININE 0.66 mg/dL (0.70-1.30); EST CRCL DRUG DOSING (CG) 74.85 mL/min; POTASSIUM,K 3.5 mmol/L (3.5-5.1); PROTEIN TOTAL,TP 6.2 g/dL (6.4-8.2)
[2025-02-14 12:27] LABS: A/G RATIO 0.68
[2025-02-14] MEDS: Heparin Sodium 5,000 Units/ML Vial IVPUSH ONE (13:40)
[2025-02-14] MEDS: Heparin Sodium/0.45% NaCl 25,000 UNITS/500 ML BAG IV SCH (13:42)
[2025-02-14] MEDS: Acetaminophen 500 MG Tab PO ONE (13:47)
[2025-02-14 15:47] VITALS: BP 126/55; PULSE 82
== END 2025-02-14 15:50 ==
LOC: DL.ED 11:12
DX: I82.432 Acute embolism and thrombosis of left popliteal vein (principal); I82.412 Acute embolism and thrombosis of left femoral vein; I25.10 Atherosclerotic heart disease of native coronary artery without angina pectoris; E78.00 Pure hypercholesterolemia, unspecified; Z86.16 Personal history of COVID-19; Z90.49 Acquired absence of other specified parts of digestive tract; Z79.899 Other long term (current) drug therapy; Z88.5 Allergy status to narcotic agent; Z88.8 Allergy status to other drugs, medicaments and biological substances; Z88.2 Allergy status to sulfonamides; Z88.0 Allergy status to penicillin; Z88.1 Allergy status to other antibiotic agents
CPT/HCPCS: 36415; 73560; 80053; 83605; 85025; 85730; 87040; 93971; 96365; 96366; 99285; A9270; J1644

== ENCOUNTER 2025-02-18 23:11 | Emergency (ER) | payer MEDICARE, OTHER ==
[2025-02-18] MEDS ORDERED: Benzocaine/Docusate Sodium 20-283 MG/5 ML Enema RECTAL ONE (23:36)
[2025-02-19] MEDS: Lidocaine 2% Jelly 10 ML Urojet MUCMEM ONE (00:12)
[2025-02-19] MEDS ORDERED: Acetaminophen 500 MG Tab PO ONE (00:33)
[2025-02-19 01:08] VITALS: BP 128/52; PULSE 72
== END 2025-02-19 01:07 | disposition home or self-care (01) ==
LOC: DL.ED 23:11
DX: K59.00 Constipation, unspecified (principal); E78.00 Pure hypercholesterolemia, unspecified; I25.10 Atherosclerotic heart disease of native coronary artery without angina pectoris; Z88.0 Allergy status to penicillin; Z88.8 Allergy status to other drugs, medicaments and biological substances; Z79.899 Other long term (current) drug therapy; Z86.16 Personal history of COVID-19; Z90.49 Acquired absence of other specified parts of digestive tract
CPT/HCPCS: 74018; 99283; A9270-GY